=== PATIENT | female | born 1985 ===

== ENCOUNTER 2016-12-31 13:56 | Outpatient (CLI) | payer OTHER, MEDICAID ==
[~2016-12-31] VITALS: Ht 165.1 cm; Wt 95.9 kg
[2016-12-31 14:16] VITALS: BP 129/71; PULSE 102; TEMP 98.1
[2016-12-31 14:30] VITALS: BP 129/71; PULSE 102; TEMP 98.1
[2016-12-31] MEDS ORDERED: PRENATAL1 TA7 PO (14:38)
[2016-12-31] MEDS ORDERED: PERCOCET 325 MG1 TA2 PO (23:20)
[2016-12-31] MEDS ORDERED: MOTRIN 800800 MG/TAB PO (23:20)
== END 2016-12-31 15:30 | disposition home or self-care (01) ==
LOC: LDRO 13:56
DX: O47.1 False labor at or after 37 completed weeks of gestation (principal); Z3A.40 40 weeks gestation of pregnancy

== ENCOUNTER 2016-12-31 21:53 | Inpatient (IN) | payer OTHER, MEDICAID ==
[2016-12-31] VITALS (9 sets, daily range): BP systolic 117–135; BP diastolic 56–90; PULSE 76–96; TEMP 97.7
[~2016-12-31] VITALS: Ht 170.2 cm; Wt 95.9 kg
[~2016-12-31 21:53] MED LIST: PRENATAL1 TA7 PO
[2016-12-31] MEDS ORDERED: MOTRIN 800800 MG/TAB PO (23:20)
[2016-12-31] MEDS ORDERED: PERCOCET 325 MG1 TA2 PO (23:20)
[2017-01-01] VITALS (18 sets, daily range): BP systolic 106–134; BP diastolic 53–103; PULSE 71–108; TEMP 97.6–98
[2017-01-01 00:31] LABS: BASO % 0.3 % (0.0-2.0); EOS % 0.1 % (0-4.0); GRAN # 11.6 (1.4-6.5); GRAN % 85.4 % (42.2-75.2); HEMATOCRIT 37.7 % (37.0-47.0); LYMPH # 1.3 (1.2-3.4); LYMPH % 9.2 % (20.0-51.0); MEAN CELL VOLUME 86 fl (80.0-100.0); MEAN CORPUSCULAR HEMOGLOBIN 30 pg (27.0-31.0); MEAN CORPUSCULAR HGB CONC 35 g/dl (33.0-37.0); MEAN PLATELET VOLUME 11.3 fl (7.4-10.4); MONO # 0.6 (0.1-0.6); MONO % 4.3 % (1.7-9.3); PLATELET COUNT 316 K/mm3 (130-400); RED BLOOD COUNT 4.37 M/mm3 (4.10-5.30); REDCELL DISTRIBUTION WIDTH-CV 14.1 % (11.5-14.5); WHITE BLOOD COUNT 13.6 K/mm3 (4.8-10.8)
[2017-01-02 08:25] VITALS: BP 114/55; PULSE 72; TEMP 98.2
== END 2017-01-02 17:45 | disposition home or self-care (01) | DRG 775 ==
LOC: LDRO 21:53 → OB 22:12 → LDR 22:12 → OB 01-01 16:40
PROVIDERS: Obstetrics & Gynecology
PROC: 10E0XZZ Delivery of Products of Conception, External Approach (ICD-10-PCS; principal; 2017-01-01)
PROC: 0HQ9XZZ Repair Perineum Skin, External Approach (ICD-10-PCS; 2017-01-01)
DX: O48.0 Post-term pregnancy (principal); O70.0 First degree perineal laceration during delivery; Z3A.40 40 weeks gestation of pregnancy; Z37.0 Single live birth
CPT/HCPCS: J2590; J2795; J7120